=== PATIENT | female | born 1960 | race Caucasian/White ===

== ENCOUNTER → 2016-08-28 | Outpatient (REF) | payer OTHER | LOC: M LAB REF 16:51 | PROVIDERS: ATTEND Internal Medicine Medical Oncology | DX: C50.919 Malignant neoplasm of unspecified site of unspecified female breast (principal) ==

== ENCOUNTER → 2016-09-07 | Outpatient (CLI) | payer OTHER ==
--- NOTE | 2016-09-08 06:48 | RADONC ---
RADIATION ONCOLOGY CONSULTATION NOTE DATE: 09/07/2016 CHART NUMBER: [id number]. DIAGNOSIS: Right breast cancer. STAGE: Clinical stage IIB, T3NXMX. ECOG PERFORMANCE STATUS: 0 CONSULTATION NOTE: Ms. 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 HISTORY OF PRESENT ILLNESS: The patient's history actually dates back to sometime in 2012 when she first noticed a mass in her right breast. Apparently imaging was done in 2012, which I do not have at this time. It was noted that she had a 5 x 5 cm mass clinically. An ultrasound showed a 4 x 3 x 4 cm lobulated mass. A length of 7.8 cm was actually described from what I understand. She did not have a biopsy at that point. She was lost to followup. In 2014 imaging was repeated, but again she did not appear for followup. Apparently on 07/21/2015 she did undergo a biopsy of her right breast mass. Pathology revealed a poorly differentiated invasive ductal carcinoma. The tumor was estrogen receptor positive, progesterone receptor positive and HER2 negative. The tumor was noted to have some neuroendocrine features. A previous biopsy of a left axillary lymph node showed no evidence of malignancy. The patient was seen by Dr. Garcia for discussion of surgery and indeed is scheduled for surgery on Sunday. The patient was also seen by the medical oncologist, Dr. Ruiz, who discussed the possibility of presurgical chemotherapy. PAST MEDICAL HISTORY: The patient's past medical history is positive for two C-sections and four dilatation and curettages. It is otherwise noncontributory. ALLERGIES: The patient is allergic to ERYTHROMYCIN and CLINDAMYCIN. SOCIAL HISTORY: The patient does not smoke cigarettes nor abuse alcohol. FAMILY HISTORY: The patient's family history is positive for paternal aunts with breast cancer. REVIEW OF SYSTEMS: The patient's review of systems is positive for the mass in her right breast. It is otherwise noncontributory. She denies nausea, vomiting, fevers, chills, night sweats, diplopia, headaches, anxiety or depression, anorexia, weight loss, visual disturbances, chest pain, urinary or bowel difficulties, bone pain, or neurological problems. PHYSICAL EXAMINATION: The patient is a well-developed, well-nourished white female in no acute distress. HEENT exam is normocephalic, atraumatic. Extraocular movements are intact. There is no palpable cervical, supraclavicular, infraclavicular, axillary, or inguinal lymphadenopathy present. Lungs are clear to auscultation and percussion. Heart has a regular rate and rhythm. Abdomen is benign with no hepatosplenomegaly, masses, or tenderness. Breast examination reveals a left breast which is free of masses or discharge. The right breast examination reveals a mass which measures at least 6 cm x 6 cm, which appears to be freely mobile and not attached to either the skin or the chest wall. Skeletal examination reveals no tenderness to pressure or percussion of the bony skeleton. Extremities reveal no clubbing, cyanosis, or edema. Neurologic exam is grossly intact, as is the remainder of the physical examination. IMAGING: The patient's CT scan of the chest done on 04/19/2016 which shows a mass in the right breast measuring approximately 4.8 cm x 3.4 cm x 3.7 cm. ASSESSMENT: I had a lengthy discussion with this patient with regards to her various options. At the present time, she is scheduled for resection with Dr. Garcia on Sunday. Pending the pathologic results following that resection, further recommendations will be made. I fully suspect that this patient will require systemic therapy and indeed following surgery systemic therapy will be given prior to radiation. In light of that, I have not scheduled her for any followup or appointments in our office at this time. She is aware that her next step is to be seen by Dr. Garcia and undergo her surgery. She will then be returning to Dr. Ruiz for her systemic therapy and will be referred back to us by Dr. Ruiz for postoperative radiation therapy in attempt to increase the likelihood of achieving local control and cure. Clearly recommendations may change pending further workup and results of her surgery. I have discussed with the patient in detail the potential benefits as well as possible acute and chronic sequelae of external beam radiation therapy. We discussed logistics of treatment planning, simulation and subsequent fractionated daily radiation treatments. I have given the patient my cell phone number and work number so that I am available to answer any question she may have at anytime. Thank you once again for allowing us to participate in the care of this very pleasant woman. If I could be of any further assistance or provide you with any information, please free to contact me at anytime. cc: Pamela Ruiz MD *Kory Weldon MD *ANDREW Cade *Nakita Garcia MD
== END ==
LOC: M ONCR 13:02
PROVIDERS: ATTEND Radiology Radiation Oncology
DX: C50.919 Malignant neoplasm of unspecified site of unspecified female breast (principal)

== ENCOUNTER → 2016-09-27 | Outpatient (REF) | payer OTHER ==
[2016-09-27 17:13] LABS: INR 1.02
== END ==
LOC: M LAB REF 16:18
PROVIDERS: ATTEND Internal Medicine Medical Oncology
DX: C50.919 Malignant neoplasm of unspecified site of unspecified female breast (principal)

== ENCOUNTER → 2016-09-28 | Outpatient (REF) | payer OTHER ==
[2016-09-28 20:40] LABS: FERRITIN 2 NG/ML (8-252); IMMUNOGLOBULIN G 1010 MG/DL (681-1648); IMMUNOGLOBULIN M 133 MG/DL (40-230); PERCENT SATURATION 3.6 % (13.2-37.4); THYROXINE (T4) 12.1 UG/DL (4.5-12.0); TOTAL IRON BINDING CAPACITY 495 UG/DL (250-450); TOTAL PROTEIN 6.9 GM/DL (6.4-8.2)
[2016-10-03 09:17] LABS: ALBUMIN 3.73 GM/DL (3.29-5.55)
== END ==
LOC: M LAB REF 16:08
PROVIDERS: ATTEND Internal Medicine Medical Oncology
DX: C50.919 Malignant neoplasm of unspecified site of unspecified female breast (principal)

== ENCOUNTER → 2016-09-29 | Outpatient (CLI) | payer OTHER ==
--- NOTE | 2016-09-29 11:53 | REP ---
FOCUSED RIGHT AXILLARY ULTRASOUND: HISTORY: Right breast cancer, neglected mass. Restaging. 6-month lapse between original state and beginning of treatment. Question enlarged node. COMPARISON: Right breast sonography is from July 01, 2015. Comparison sonography was imaging of a mass in the right breast but not axillary sonography. FINDINGS: The right axilla is scanned. Multiple lymph nodes are seen. However, these appear sonographically normal with hyperechoic central fat replacement. There is a 3 mm cyst. Normal appearing lymph nodes are observed measuring as follows: 1.1 x 1.1 x 1.7, 1.9 x 1.6 x 1.4, 2.3 x 0.8 x 2.2, 1.4 x 0.8 x 1.5, 1.1 x 0.8, and 1.0 x 1.2 cm. These lymph nodes display a thin rim of hypoechoic cortex and central hilar hyperechoic fatty tissue. IMPRESSION: No suspicious lymph node is appreciated by ultrasound. Signed by Solo Thurman MD 09/29/2016 02:06 P
== END ==
LOC: M RAD 09:57
PROVIDERS: ATTEND Internal Medicine Medical Oncology
DX: C50.911 Malignant neoplasm of unspecified site of right female breast (principal)

== ENCOUNTER → 2016-10-06 | Outpatient (CLI) | payer OTHER ==
[~2016-10-06] MED LIST: GASTROGRAFIN SOLUTION 30ML (Q9963) As Ordered ONE; ISOVUE-370 76% 100ML VIAL (Q9967) As Ordered ONE
--- NOTE | 2016-10-06 16:10 | REP ---
CT of the chest with IV contrast: Comparison is 04/09/2016. The patient's known right breast mass is again identified and measures 3.8 cm as previously. No axillary adenopathy is identified on the right or left. No left breast mass is identified. The patient's known nodule in the superior segment right lower lobe is again identified today measuring 6 mm (previously 3.5 mm. No other lung nodules or masses are identified. There are no acute infiltrates or effusions. There is no mediastinal or hilar adenopathy. Thoracic aorta is unremarkable. Cardiac size normal. There is no pericardial effusion. No lytic, blastic or destructive skeletal changes are identified. The manubrium is unremarkable. Impression: The patient's known right lung nodule today measures 6 mm (3.5 mm previously). The patient's known right breast mass is unchanged. There is no axillary, hilar or mediastinal adenopathy, as previously. There are no acute infiltrates or effusions. No destructive skeletal lesions. The manubrium is unremarkable. There is a small hiatal hernia containing opaque ingested material. There is opaque ingested material in the stomach. Signed by Nemesio Anguiano MD 10/06/2016 04:02 P
--- NOTE | 2016-10-06 16:26 | REP ---
CT ABDOMEN: HISTORY: Breast cancer. COMPARISON: 04/19/2016 CONTRAST: 100 mL Isovue-370 The precontrast enhanced portion of the examination shows no change in the appearance of hepatic or splenic densities. There are no choleliths or nephroliths. The contrast-enhanced portion of the examination shows the liver, spleen, gallbladder, pancreas, adrenal glands and kidneys to be unchanged, remaining within normal limits. The abdominal aorta and periaortic regions are unchanged remaining within normal limits. The bowel loops and the mesenteries are again seen to be within normal limits. There is no free fluid or free air. There is no intraabdominal mass or adenopathy. CT pelvis: The bowel loops and their mesenteries are within normal limits. There is no pelvic sidewall adenopathy. There is no free fluid or free air. Once again, there is uterine enlargement which has increased from the prior exam. Bone window technique throughout the examination shows no change in the appearance of the osseous structures. Spinal degenerative changes are noted, status quo. IMPRESSION: Essentially stable CT examination of the abdomen and pelvis as described above showing no evidence of acute disease. The uterus is enlarged and has gotten larger in size compared to the prior exam. I suspect this is likely secondary to myomatous change. This could be confirmed with pelvic ultrasonography. Signed by Madhu Vicente DO 10/06/2016 04:32 P
== END ==
LOC: M RAD 13:57
PROVIDERS: ATTEND Internal Medicine Medical Oncology
DX: C50.919 Malignant neoplasm of unspecified site of unspecified female breast (principal); R91.1 Solitary pulmonary nodule; K44.9 Diaphragmatic hernia without obstruction or gangrene

== ENCOUNTER → 2016-10-12 | Outpatient (REF) | payer OTHER ==
[2016-10-12 17:56] LABS: INR 1.08
[2016-10-15 00:06] LABS: ENDOMYSIAL ABY IgA Negative (Negative)
== END ==
LOC: M LAB REF 16:47
PROVIDERS: ATTEND Internal Medicine Medical Oncology
DX: C50.211 Malignant neoplasm of upper-inner quadrant of right female breast (principal); Z79.810 Long term (current) use of selective estrogen receptor modulators (SERMs); E83.52 Hypercalcemia; D50.9 Iron deficiency anemia, unspecified; Z17.0 Estrogen receptor positive status [ER+]

== ENCOUNTER → 2016-10-25 | Outpatient (CLI) | payer OTHER ==
[~2016-10-25] MED LIST changes: +FLON27.5; -GASTROGRAFIN SOLUTION 30ML (Q9963) As Ordered ONE; -ISOVUE-370 76% 100ML VIAL (Q9967) As Ordered ONE; +MEGA625S PO; +ZYRT10CA PO
== END ==
LOC: M CARPUL 10:25
PROVIDERS: ATTEND Internal Medicine Medical Oncology
DX: C50.919 Malignant neoplasm of unspecified site of unspecified female breast (principal)

== ENCOUNTER → 2016-10-31 | Outpatient (CLI) | payer OTHER ==
[~2016-10-31] VITALS: Ht 152.4 cm; Wt 63.6 kg
[~2016-10-31] MED LIST changes: +ACETAMINOPHEN TAB 650MG DOSE (2X325MG) PO SCH; +diphenhydrAMINE 25 MG CAP PO SCH
[2016-10-31 10:45] VITALS: BP 155/74
== END | disposition home or self-care (01) ==
LOC: M OPP 09:57
PROVIDERS: ATTEND Internal Medicine Medical Oncology
DX: D64.9 Anemia, unspecified (principal); Z88.9 Allergy status to unspecified drugs, medicaments and biological substances; Z79.899 Other long term (current) drug therapy
CPT/HCPCS: 36430; 86850; 86920; P9016

== ENCOUNTER → 2016-11-06 | Outpatient (REF) | payer OTHER ==
[~2016-11-06] MED LIST changes: -ACETAMINOPHEN TAB 650MG DOSE (2X325MG) PO SCH; -diphenhydrAMINE 25 MG CAP PO SCH
== END ==
LOC: M LAB REF 12:21
PROVIDERS: ATTEND Internal Medicine Medical Oncology
DX: C50.919 Malignant neoplasm of unspecified site of unspecified female breast (principal)

== ENCOUNTER → 2016-12-12 | Outpatient (CLI) | payer OTHER ==
--- NOTE | 2016-12-12 14:02 | REP ---
NUCLEAR PARATHYROID SESTAMIBI SCAN WITH SPECT IMAGING: Following the intravenous administration of 26.9 millicuries technetium 99m sestamibi, images of the neck are obtained in the anterior and both anterior oblique projections 15 minutes and 3 hours post injection. In addition, delayed SPECT images are performed in the axial, coronal, and sagittal planes. Initial images show symmetrical activity in the salivary glands and also in the thyroid bed. On the delayed images, there is no persistent focus of activity in the region of the thyroid bed. There is no compelling scintigraphic evidence of parathyroid adenoma. IMPRESSION: No compelling scintigraphic evidence of parathyroid adenoma. Signed by Nemesio Fonseca MD 12/12/2016 08:11 P
== END ==
LOC: M RAD 08:32
PROVIDERS: ATTEND Internal Medicine Endocrinology, Diabetes & Metabolism
DX: E21.0 Primary hyperparathyroidism (principal)

== ENCOUNTER → 2017-01-24 | Outpatient (REF) | payer OTHER | LOC: M LAB REF 14:39 | PROVIDERS: ATTEND Internal Medicine Medical Oncology | DX: C50.919 Malignant neoplasm of unspecified site of unspecified female breast (principal) ==

== ENCOUNTER → 2017-02-01 | Outpatient (CLI) | payer OTHER ==
[~2017-02-01] MED LIST changes: +GASTROGRAFIN SOLUTION 30ML (Q9963) As Ordered ONE; +ISOVUE-370 76% 100ML VIAL (Q9967) As Ordered ONE
--- NOTE | 2017-02-01 13:18 | REP ---
BILATERAL MAMMOGRAM: FAMILY HISTORY: Two aunts with breast cancer. Bilateral mammography performed in the MLO and CC projections and compared to multiple prior exams, most recently studies of 07/21/2015 and 06/02/2015. These were performed at [facility]. There are also other studies dating back to 07/14/2010 at [facility]. Patient has had a biopsy of a large mass in the right breast and a metallic clip is seen medially from the biopsy. At that location, a large spiculated mass is again seen, with increased spiculations since the 2016 exams. Overall size of the mass has not significantly changed. There may be a few internal calcifications associated with the mass. No new mass or clustered microcalcifications are seen in the right breast. In the left breast laterally and posteriorly is an oval nodule approximately 1 cm in diameter which appears to have slightly increased in size since 2015 exam. An ultrasound in 2014 showed this to represent a solid nodule. No new mass is seen in the left breast. No clustered microcalcifications are seen. IMPRESSION: ACR 6 known biopsy proven malignancy, with a mass again seen in the inferomedial right breast. There are increased spiculations compared to the prior exam on 2015 with no significant change in the overall size of the mass. BI-RADS/ACR category 6 mammogram. Known biopsy-proven malignancy - appropriate action should be taken. Category reserved for lesions identified on imaging study with biopsy proof of malignancy prior to definitive therapy. ACR 0 complete mammogram left breast with an oval nodule again seen which has mildly increased in size compared to prior studies dating back to 08/11/2014. This was found to be solid by ultrasound in 2015. I would recommend spot compression views and ultrasound in order to re-evaluate this mass as I have no history of any biopsy performed. ACR 0 incomplete. BI-RADS/ACR category 0 mammogram. Incomplete: Additional imaging and/or prior images are needed before a final assessment can be assigned. This mammogram was interpreted with the aid of an FDA-approved computer-aided detection system. A. Negative x-ray reports should not delay biopsy if a dominant or clinically suspicious mass is present. B. Four to eight percent of cancers are not identified by x-ray. C. Adenosis and dense breasts may obscure an underlying neoplasm. The patient states she had a clinical breast exam in 01/2017. The patient letter being requested is M0. Signed by Nemesio Fonseca MD 02/01/2017 07:52 P
--- NOTE | 2017-02-02 05:29 | REP ---
Clinical: History of breast cancer for restaging. Technique: Axial contrast enhanced images from the lung bases to the pubic symphysis using oral and 100 ml Isovue 370 intravenous contrast material with precontrast and delayed images of the abdomen as well as coronal and sagittal re-formations. Comparison: 10/06/2016. Findings: Lung bases are relatively clear and without focal consolidation, significant nodule or mass lesion. No pleural effusion. Sized heart and pericardium are normal. Moderate hiatal hernia identified. Liver, spleen/splenules, pancreas, gallbladder, bilateral adrenal glands and kidneys are normal. The enteric system including terminal ileum and appendix are normal and without evidence for obstruction or acute inflammatory process. The uterus is enlarged and heterogeneous suggesting myomatous changes. Bilateral adnexa are normal. Bladder is unremarkable. No pelvic fluid or ascites. No significant intraperitoneal or retroperitoneal adenopathy. No mass lesion. Vasculature appears normal. Surrounding musculoskeletal structures demonstrate age-related degenerative changes without focal osseous abnormality. Impression: 1. Multiple splenules in the left upper abdomen remains stable. 2. Enlarged heterogeneous presumed myomatous uterus may warrant pelvic ultrasound for evaluation. 3. No acute abdominopelvic pathology, evidence for recurrence, mass lesion or metastatic disease. Signed by Bridger Shaffer MD 02/02/2017 05:21 A
--- NOTE | 2017-02-02 05:36 | REP ---
Clinical: Breast cancer for restaging. Technique: Axial contrast enhanced images from the thoracic inlet to the upper abdomen using 100 ml is Isovue 370 intravenous contrast material with coronal and sagittal re-formations. Comparison: 10/06/2016. Findings: The bilateral lung zambrano are well-aerated and relatively symmetric. A small 5-6 mm noncalcified nodule inseparable from the major fissure (image 47) is essentially unchanged. No further significant nodule or mass lesion is appreciated. No consolidation, pleural effusion or pneumothorax. Tracheobronchial tree is patent. Axillary lymph nodes are relatively symmetric and mildly prominent. No hilar or mediastinal adenopathy noted. A moderate hiatal hernia is unchanged. Thoracic aorta, pulmonary vasculature and heart/pericardium are within normal limits. Surrounding musculoskeletal structures demonstrate age-related changes without focal osseous abnormality. Right breast mass is minimally decreased in size. Impression: 1. A 6 mm noncalcified nodule inseparable from the right major fissure is unchanged and nonspecific. Given the patient's history, continued follow-up is warranted as metastatic disease cannot definitively be excluded. 2. No further, significant or acute mediastinal or pleuroparenchymal process otherwise appreciated. 3. Right breast mass may be minimally decreased in size/volume. Signed by Bridger Shaffer MD 02/02/2017 05:28 A
== END ==
LOC: M RAD 09:54
PROVIDERS: ATTEND Internal Medicine Medical Oncology
DX: Z12.31 Encounter for screening mammogram for malignant neoplasm of breast (principal); C50.919 Malignant neoplasm of unspecified site of unspecified female breast; N85.2 Hypertrophy of uterus; R91.1 Solitary pulmonary nodule
CPT/HCPCS: 71260; 74178; G0202; Q9963; Q9967

== ENCOUNTER → 2017-02-12 | Outpatient (CLI) | payer OTHER ==
[~2017-02-12] MED LIST changes: -GASTROGRAFIN SOLUTION 30ML (Q9963) As Ordered ONE; -ISOVUE-370 76% 100ML VIAL (Q9967) As Ordered ONE
[2017-02-12 11:57] LABS: CALCIUM LEVEL 11.3 MG/DL (8.5-10.1); PHOSPHORUS LEVEL 2.4 MG/DL (2.5-4.9)
== END ==
LOC: M LAB 10:51
PROVIDERS: ATTEND Internal Medicine Endocrinology, Diabetes & Metabolism
DX: E21.0 Primary hyperparathyroidism (principal)

== ENCOUNTER → 2017-05-22 | Outpatient (CLI) | payer OTHER ==
[2017-05-22 11:03] LABS: CALCIUM LEVEL 11.8 MG/DL (8.5-10.1); PHOSPHORUS LEVEL 2.3 MG/DL (2.5-4.9)
[2017-05-22 11:27] LABS: PTH INTACT 167.5 PG/ML (14.0-72.0)
== END ==
LOC: M LAB 10:09
DX: E21.0 Primary hyperparathyroidism (principal)
CPT/HCPCS: 82310

== ENCOUNTER → 2017-07-31 | Outpatient (REF) | payer OTHER | LOC: M LAB REF 13:47 | DX: C50.919 Malignant neoplasm of unspecified site of unspecified female breast (principal) ==

== ENCOUNTER → 2017-10-16 | Outpatient (REF) | payer OTHER ==
[2017-10-16 14:05] LABS: FERRITIN 5 NG/ML (8-252); IRON (FE) 36 UG/DL (50-170); PERCENT SATURATION 7.9 % (13.2-45.0); TOTAL IRON BINDING CAPACITY 456 UG/DL (250-450)
== END ==
LOC: M LAB REF 13:17
DX: C50.211 Malignant neoplasm of upper-inner quadrant of right female breast (principal); E83.52 Hypercalcemia; E21.3 Hyperparathyroidism, unspecified; D50.9 Iron deficiency anemia, unspecified; Z17.0 Estrogen receptor positive status [ER+]

== ENCOUNTER → 2017-11-20 | Outpatient (REF) | payer OTHER ==
[2017-11-22 00:21] LABS: CA 27.29 28.5 U/mL (0.0-38.6)
== END ==
LOC: M LAB REF 13:55
DX: C50.211 Malignant neoplasm of upper-inner quadrant of right female breast (principal); E83.52 Hypercalcemia; E21.3 Hyperparathyroidism, unspecified; D50.9 Iron deficiency anemia, unspecified; Z17.0 Estrogen receptor positive status [ER+]

== ENCOUNTER → 2018-04-08 | Outpatient (CLI) | payer OTHER | LOC: M RAD 14:29 | DX: C50.211 Malignant neoplasm of upper-inner quadrant of right female breast (principal) | CPT/HCPCS: 77066 ==

== ENCOUNTER → 2018-05-20 | Outpatient (CLI) | payer OTHER ==
[~2018-05-20] MED LIST changes: +AMOX500T PO; +FLON1SPR; +FLUC150T PO; +FURO20TA2 PO; +GASTROGRAFIN SOLUTION 30ML (Q9963) As Ordered ONE; +HYDR12CA; +ISOVUE-370 76% 100ML VIAL (Q9967) As Ordered ONE; +LOSA50TA88; +METO25TA4 PO; +NYST50SS; +TAMO20TA8 PO; +VITA100067 PO; +VITATAB11 PO
--- NOTE | 2018-05-21 07:04 | REP ---
Clinical: History of breast cancer for restaging. Technique: Axial contrast enhanced images from the thoracic inlet to the upper abdomen with coronal and sagittal re-formations using 100 ml Isovue 370 intravenous contrast material. Comparison: 02/01/2017. Findings: The bilateral lung zambrano are essentially well-aerated and clear. No area of consolidation, significant pulmonary nodule or mass lesion is appreciated. No pleural effusion or pneumothorax. Tracheobronchial tree is patent. No mediastinal or hilar adenopathy noted. The mediastinum demonstrates essentially normal thoracic aorta, pulmonary vasculature and heart/pericardium. There is a large heterogeneously enhancing right breast mass measuring greater than 6.6 cm diameter with infiltration to the surrounding fat, central low density changes which may reflect elements of necrosis and significant right axillary adenopathy with lymph node measuring up to 4.2 x 3.1 cm. Mass and right axillary adenopathy is significantly increased when compared to prior examination. Surrounding musculoskeletal structures of the thorax appear intact without focal lesion to suggest osseous metastatic disease. Impression: 1. No evidence for intrathoracic metastatic disease, and no evidence for acute mediastinal or pleuroparenchymal process. 2. Large heterogeneously enhancing right breast mass with right axillary adenopathy significantly increased from prior examination. Electronically Signed by Bridger Shaffer MD 05/21/2018 06:55 A
--- NOTE | 2018-05-21 07:08 | REP ---
Clinical: History of breast cancer for restaging. Technique: Axial contrast enhanced images from the lung bases to the pubic symphysis using oral (per protocol) and 100 ml Isovue 370 intravenous contrast material with delayed images of the abdomen as well as coronal and sagittal re-formations. Comparison: 02/01/2017. Findings: Lung bases are clear. Visualized heart and pericardium within normal limits. Small to moderate hiatal hernia noted at the gastroesophageal junction. The liver is essentially normal in appearance on both portal venous and delayed phase images, but a very subtle area of heterogeneous enhancement approaching the dome of the posterior segment right lobe cannot definitively be excluded. Spleen, pancreas, gallbladder, bilateral adrenal glands and kidneys are essentially normal. Few small left peripelvic renal cysts measure up to 1 cm. The enteric system is without obstruction or acute inflammatory process. Normal terminal ileum and appendix are identified in the right lower quadrant. Pelvis demonstrates normal bladder and age-appropriate uterus/adnexa. No ascites. No intraperitoneal or retroperitoneal adenopathy. Abdominal aorta and vasculature appear relatively normal and without aneurysm or dissection. No free air. Surrounding musculoskeletal structures are intact and without focal osseous abnormality. Impression: 1. Very subtle vague area of early enhancement involving the posterior segment right lobe of the liver approaching the dome cannot be excluded. A 3-6 month follow-up may be warranted. 2. Small simple appearing left renal peripelvic cysts up to 1 cm. 3. Small to moderate hiatal hernia. Electronically Signed by Bridger Shaffer MD 05/21/2018 07:01 A
== END ==
LOC: M RAD 08:50
PROVIDERS: ATTEND Internal Medicine Medical Oncology
DX: C50.919 Malignant neoplasm of unspecified site of unspecified female breast (principal); N28.1 Cyst of kidney, acquired; K44.9 Diaphragmatic hernia without obstruction or gangrene
CPT/HCPCS: 71260; 74177; Q9963; Q9967

== ENCOUNTER → 2018-10-22 | Outpatient (CLI) | payer OTHER ==
[~2018-10-22] MED LIST changes: +ALL10TAB28 PO; +ALLE10TA62 PO; +AMOX500C PO; +FERR325T18 PO; +FLUTISP; -GASTROGRAFIN SOLUTION 30ML (Q9963) As Ordered ONE; -ISOVUE-370 76% 100ML VIAL (Q9967) As Ordered ONE; -LOSA50TA88; +LOSA50TA88 PO; +PRAV40TA2 PO; +RIBO1CAP PO
--- NOTE | 2018-10-24 09:23 | RADONC ---
RADIATION ONCOLOGY CONSULTATION NOTE DATE: 10/22/2018 CHART NUMBER: [id number] DIAGNOSIS: Right breast cancer. STAGE: [id number], ER positive, MD positive, HER2 equivocal, grade 3, Oncotype score 38. ECOG PERFORMANCE STATUS: 0 CONSULTATION: Ms. 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 HISTORY OF PRESENT ILLNESS: The patient's history actually dates back to some time in early 2012 when she first noticed a mass in her right breast. Apparently, imaging was done in 2012, which I do have at this time. She was noted to have a 5 x 5 cm mass clinically. An ultrasound showed a 4 x 3 x 4 cm lobulated mass. A length of 7.8 cm was described from what I understand. She did not have any biopsy and was lost to follow-up at that time. In 2014, imaging was repeated and again, the patient did not appear to follow-up. Apparently in 2016 she did undergo a biopsy of her right breast and pathology revealed a poorly differentiated invasive ductal carcinoma. The tumor was estrogen receptor positive, progesterone receptor positive and HER2 negative. The tumor was noted to have some neuroendocrine features. Previous biopsy was done of the left axillary lymph node and showed no evidence of malignancy. The patient was seen by Dr. Garcia for discussion of surgery and was indeed scheduled for surgery in 2016. She was also seen by her medical oncologist, Dr. Ruiz who discussed the possibility of presurgical chemotherapy. Apparently, the patient did receive neoadjuvant chemotherapy consisting of TC. There was serial noncompliance. The patient had been scheduled on multiple occasions for surgery with Dr. Garcia and failed to show up. She was subsequently seen by Dr. Beck and failed to show up on multiple occasions as well. Eventually, she made her way to Dr. Lopez and on 10/03/2018 finely underwent a right modified radical mastectomy. Pathology revealed a 10.5 cm poorly differentiated invasive ductal carcinoma with neuroendocrine features. The tumor extended into and invaded the subcutaneous tissue and abutted the deep dermis. Skeletal muscle was free of malignancy. Lymphovascular invasion was seen. A total of 16 lymph nodes were sampled and 2 were positive for metastatic disease with extranodal extension noted. The size of the largest metastatic deposit was 2.2 cm. The tumor was estrogen receptor positive, progesterone receptor positive and HER2 equivocal at this time. The patient has done well since surgery and is now presenting to us for consideration of postoperative radiation therapy in an attempt to increase the likelihood of achieving local control. Once again, she has invasive carcinoma present at the deep margin of resection. PAST MEDICAL HISTORY: The patient's past medical history is positive for hypertension and thyroid problems. She has had two sections and four dilatation and curettage in the past. SOCIAL HISTORY: The patient has never smoked cigarettes. She has never drank alcohol. She lives with her mother. FAMILY HISTORY: The patient's family history is positive for a father with leukemia and two paternal aunts with breast cancer. ALLERGIES: The patient is allergic to: 1. AMOXICILLIN. 2. CLINDAMYCIN. 3. ERYTHROMYCIN. 4. PERCOCET. REVIEW OF SYSTEMS: The patient's review of systems is noncontributory. She denies nausea, vomiting, fevers, chills, night sweats, diplopia, headaches, anxiety or depression, anorexia, weight loss, visual disturbances, chest pain, urinary or bowel difficulties, bone pain, or neurological problems. PHYSICAL EXAMINATION: The patient is a well-developed, well-nourished white female in no acute distress. HEENT exam is normocephalic, atraumatic. Extraocular movements are intact. There is no palpable cervical, supraclavicular, infraclavicular, axillary, or inguinal lymphadenopathy present. Lungs are clear to auscultation and percussion. Heart has a regular rate and rhythm. Abdomen is benign with no hepatosplenomegaly, masses, or tenderness. Breast examination reveals a right chest wall with a healing surgical scar present consistent with her above history. Her left breast is without masses or discharge. Skeletal examination reveals no tenderness to pressure or percussion of the bony skeleton. Extremities reveal no clubbing, cyanosis, or edema. Neurologic exam is grossly intact, as is the remainder of the physical examination. ASSESSMENT: Clearly the patient is a candidate for postoperative radiation therapy and I have so informed her. I have discussed with the patient in detail the potential benefits as well as possible acute and chronic sequelae of external beam radiation therapy. We have discussed the logistics of treatment planning, simulation and subsequent fractionated daily radiation treatments. I have scheduled the patient for simulation and radiation treatments will follow. The patient has been made aware of the need for this treatment. She has a very long history of noncompliance going back at this point over 6 years. I have not seen any diagnostic studies in the past 6 months and therefore I have ordered a PET CT scan to be undertaken now to document her current level of disease. In light of the massive tumor and the long period of time, we are discussing there is the possibility that she already has metastatic disease. Pending the results of that PET scan, further recommendations will be made. Thank you for allowing us to participate in the care of this very pleasant woman. If I could be of any further assistance, please feel free to contact me at any time. cc: Laura Odell, MD Pamela Bajwa MD Robert Kimball, MD Kara Kort, MD David Rosner, MD
== END ==
LOC: M ONCR 08:58
PROVIDERS: ATTEND Radiology Radiation Oncology
DX: Z85.3 Personal history of malignant neoplasm of breast (principal)

== ENCOUNTER → 2018-12-04 | Outpatient (RCR) | payer OTHER ==
--- NOTE | 2018-11-04 10:32 | RADONC ---
RADIATION ONCOLOGY SIMULATION NOTE DATE: 11/04/2018 DIAGNOSIS: Right breast cancer. STAGE: T3 pathologic N1a, M0, grade 3. SIMULATION NOTE: The patient was simulated today. She was placed in a supine position with her arms over her head. 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 An immobilization device was constructed for the patient in order to enable day-to-day accuracy. After the immobilization device was fabricated, 3 mm images were captured via the CT scanning through the chest, right breast, including peripheral lymphatics. These images will be contoured as to structures to be treated and normal surrounding structures which should be avoided. The entire process was tolerated with no significant untoward side effects. I was present during the entire simulation process. The simulation was completed again without untoward events, and she will be contoured with subsequent treatment planning for treatment to begin as soon as possible. PINAD
--- NOTE | 2018-11-14 09:59 | RADONC ---
RADIATION ONCOLOGY PROGRESS NOTE DATE: 11/13/2018 CHART NUMBER: #[id number] PROGRESS NOTE: Ms. Godwin had her radiation treatment plan completed and was ready to be scheduled to initiate treatment. The patient called our office today and said she does not want radiation and does not understand why she needs radiation. I had spent an extraordinary amount of time with her initially and discussed the risks of not being treated in this very noncompliant patient. We let her know the need for radiation and the high likelihood of this disease coming back without treatment. Indeed, I had also scheduled the patient for a PET scan and explained the need for that and she absolutely refused that. This patient has a long history of noncompliance and this issue with her breast cancer has actually gone on now since early 2012. Clearly, we cannot force her to come in for treatment. I did call her home and left a message on her answering machine as she was not answering the phone. We will be sending her a letter explaining our concern as well, and I have reserved a treatment slot for her should she change her mind and wish to come in. Once again, we cannot force this woman to undergo the treatment. Indeed, we are now more than 6 years out since the initial breast mass was found. cc: Laura Odell, MORPHOLOGIST MD Pamela Alarcon MD Robert Kimball, MD Kara Kort, MD David Rosner, MD
--- NOTE | 2018-11-22 15:15 | RADONC ---
RADIATION ONCOLOGY PROGRESS NOTE DATE: 11/20/2018 CHART NUMBER: [id number] Ms. Godwin had been scheduled to start radiation once again today. She then contacted our office and said should she would not be coming in today because of difficulty with transportation. I contacted the nurse navigator and let her know about this situation. She will be contacted the patient and see how we could facilitate her transportation here to our facility. In the meantime we will continue an attempt to get her scheduled to initiate treatment. I suspect that this patient will continue to be extremely noncompliant throughout the course of this entire procedure.
--- NOTE | 2018-11-27 06:53 | RADONC ---
RADIATION ONCOLOGY PROGRESS NOTE DATE: 11/26/2018 CHART #: [id number] Ms. Godwin is presently at a dose of 540 cGy to her right chest wall and is tolerating treatments quite well at this point with no complaints related to her radiation therapy. She has no breast or bone pain. REVIEW OF SYSTEMS: The patient's review of systems is noncontributory. Denies nausea, vomiting, fevers, chills, night sweats, diplopia, headaches, anxiety or depression, anorexia, weight loss, visual disturbances, chest pain, urinary or bowel difficulties, bone pain, or neurological problems. PHYSICAL EXAMINATION: The patient's skin is in good condition with no evidence of radiation change present. There is no moist or dry desquamation. The remainder of her physical exam remains unchanged. Ms. Godwin is tolerating treatments quite well and radiation will continue as scheduled.
--- NOTE | 2018-12-03 08:52 | RADONC ---
RADIATION ONCOLOGY PROGRESS NOTE DATE: 12/02/2018 CHART NUMBER: [id number] PROGRESS NOTE: Ms. Godwin is presently at a dose of 1440 cGy to her right chest wall and supraclavicular region and is tolerating treatments quite well at this point with no complaints related to her radiation therapy. She is having no breast or bone pain. REVIEW OF SYSTEMS: The patient's review of systems is noncontributory. Denies nausea, vomiting, fevers, chills, night sweats, diplopia, headaches, anxiety or depression, anorexia, weight loss, visual disturbances, chest pain, urinary or bowel difficulties, bone pain, or neurological problems. PHYSICAL EXAMINATION: The patient's skin is in good condition with no evidence of moist or dry desquamation. The remainder of physical exam remains unchanged. Ms. Godwin is tolerating treatments quite well and radiation will continue as scheduled.
[~2018-12-04] MED LIST changes: -ALL10TAB28 PO; +ALL10TAB29 PO; +LETR2.5T2 PO; +SIMV40TA20 PO
== END ==
LOC: M ONCR 11-04 08:57
PROVIDERS: ATTEND Radiology Radiation Oncology
DX: C50.111 Malignant neoplasm of central portion of right female breast (principal)

== ENCOUNTER 2019-01-03 09:50 | Outpatient (RCR) | payer OTHER ==
--- NOTE | 2018-12-09 09:32 | RADONC ---
RADIATION ONCOLOGY PROGRESS NOTE DATE: 12/09/2018 CHART #: [id number] Mrs. Godwin with a diagnosis of right breast cancer is currently receiving local regional radiotherapy to the right chest wall and she has achieved a dose to date of 2160 cGy of her proposed 5040 cGy with further evaluation as to a potential boost. She denies any complaints referable to her disease or to her treatments. REVIEW OF SYSTEMS: She specifically denies nausea, vomiting, diarrhea, dysuria, hematuria or blood per rectum. Her energy level is such that she is able to maintain most day-to-day activities without any alteration of her lifestyle. The remainder of the review of systems is noncontributory as she denies any chest pain, urinary or bowel difficulties, bone pain or neurologic issues. EXAMINATION FINDINGS: The skin within the irradiated volume shows neither erythema nor desquamation. There may be a minimal amount of skin redness to the chest wall, but certainly no focal desquamation is noted. No adenopathy is appreciated. Lungs are clear. The remainder of the physical examination is unchanged. IMPRESSION: Tolerating therapy well. PLAN: Treatments to continue.
--- NOTE | 2018-12-09 10:55 | RADONC ---
RADIATION ONCOLOGY PROGRESS NOTE DATE: 12/09/2018 CHART #; [id number] DIAGNOSIS: Right breast cancer. Mrs. Godwin is a 58-year-old lady with a diagnosis of right breast cancer and is receiving adjuvant radiotherapy to the right chest wall and peripheral lymphatics. Her current dose is 2340 cGy of an anticipated 5040 cGy to be followed by a 1000 cGy boost to the scar site. REVIEW OF SYSTEMS: She appears to be tolerating her radiotherapy reasonably well with no significant untoward side effects. She specifically denies any nausea, vomiting, coughing, sputum production or hemoptysis. Her energy level is adequate and she is able to maintain most day-to-day activities without any alteration of her lifestyle. She does experience some minimal erythema on the right anterior chest wall. There is no evidence of desquamation. The remainder of the review of systems is noncontributory. EXAMINATION FINDINGS: Skin within the irradiated volume as stated shows a minimal hyper erythematous blush without focal moist or dry desquamation. Lymphatics: No palpable peripheral lymphadenopathy is appreciated. No masses are appreciated on the chest wall, no lymphadenopathy is noted. The remainder of the physical examination is unchanged. IMPRESSION: Tolerating therapy well. PLAN: Treatments to continue.
--- NOTE | 2018-12-18 09:11 | RADONC ---
RADIATION ONCOLOGY PROGRESS NOTE DATE OF SERVICE: 12/16/2018 CHART #: [id number] Mrs. Godwin with a diagnosis of a right breast cancer is currently receiving adjuvant radiotherapy and her dose to date is 3240 cGy of an anticipated 5040 cGy to be followed by a boost treatment to the scar site. She has no complaints referable to her disease or to her treatments. REVIEW OF SYSTEMS: The patient denies any nausea, vomiting, coughing, sputum production, or hemoptysis. Her energy level is such that she is able to maintain most day-to-day activities without any alteration of her lifestyle. Skin irritation is minimal and the patient does complain of some itching of the skin for which she uses a combination of Aquaphor and hydrocortisone cream. She denies any other symptoms such as headache, bone pain, abdominal discomfort or neurologic issues. EXAMINATION FINDINGS: The skin within the irradiated volume shows some hyperpigmentation and no evidence of desquamation. There is no evidence of local regional recurrence on her chest wall. No palpable peripheral lymphadenopathy is appreciated. Lungs are clear. The remainder of the physical examination is unchanged. IMPRESSION: Tolerating therapy well. PLAN: Treatments to continue.
--- NOTE | 2018-12-25 14:43 | RADONC ---
RADIATION ONCOLOGY PROGRESS NOTE DATE OF SERVICE: 12/23/2018 CHART NUMBER: [id number]. PROGRESS NOTE: Ms. Godwin is presently at a dose of 4140 cGy to her right chest wall and is tolerating treatments quite well at this point with no complaints related to her radiation therapy. She is having no significant skin pain or other problems. REVIEW OF SYSTEMS: The patient's review of systems is noncontributory. She denies nausea, vomiting, fevers, chills, night sweats, diplopia, headaches, anxiety or depression, anorexia, weight loss, visual disturbances, chest pain, urinary or bowel difficulties, bone pain, or neurological problems. PHYSICAL EXAMINATION: The patient's skin is in good condition with no evidence of moist or dry desquamation. There is some erythema and tanning present. The remainder of her physical examination remains unchanged. Ms. Godwin is tolerating treatments quite well, and radiation will continue as scheduled.
--- NOTE | 2018-12-26 15:03 | RADONC ---
RADIATION ONCOLOGY SIMULATION NOTE DATE: 12/24/2018 CHART NUMBER: [id number] SIMULATION NOTE: Ms. Godwin was taken to the CT taken to the linear accelerator today for clinical setup of her electron beam scar boost. Setup was accomplished without difficulty or discomfort. Radiation treatment planning is underway and radiation treatments will begin subsequently. An immobilization device was created and will be used throughout the course of her coned-down treatments. I was physically present throughout the course of clinical setup simulation.
--- NOTE | 2019-01-01 06:38 | RADONC ---
RADIATION ONCOLOGY PROGRESS NOTE DATE: 12/30/2018 CHART NUMBER: [id number] Ms. Godwin has completed radiation to her chest wall and supraclavicular regions. She is scheduled to begin the boost to her surgical scar tomorrow. REVIEW OF SYSTEMS: The patient's review of systems is largely noncontributory except for some tenderness of the skin in the irradiated field, especially in the upper inner quadrant away from the boost site. She denies nausea, vomiting, fevers, chills, night sweats, diplopia, headaches, anxiety or depression, anorexia, weight loss, visual disturbances, chest pain, urinary or bowel difficulties, bone pain, or neurological problems. PHYSICAL EXAMINATION: The patient's skin overall is in good condition with no areas of moist or dry desquamation. There is erythema and tanning present in the upper inner quadrant away from the site which will be receiving radiation. The remainder of her physical exam remains unchanged. The patient reports that she has had flushing, redness and skin reaction to sulfa drugs. In light of this, I have not ordered Silvadene to be used topically. She has been given other skin care instructions. In the meantime, radiation will continue to her boost site as planned.
[~2019-01-03 09:50] MED LIST changes: -LETR2.5T2 PO; -SIMV40TA20 PO
== END 2019-01-04 ==
LOC: M ONCR 09:50
PROVIDERS: ATTEND Radiology Radiation Oncology
DX: C50.111 Malignant neoplasm of central portion of right female breast (principal)

== ENCOUNTER 2019-01-07 09:56 | Outpatient (RCR) | payer OTHER ==
--- NOTE | 2019-01-08 08:36 | RADONC ---
RADIATION ONCOLOGY THERAPY TREATMENT SUMMARY DATE: 01/07/2019 CHART NUMBER: [id number] DIAGNOSIS: Right breast cancer. STAGE: [id number], ER positive, GA positive, HER2/sherrell equivocal, grade 3. Oncotype score 38. PLAN OF RADIOTHERAPY: Adjuvant local regional radiotherapy. The patient had received some neoadjuvant chemotherapy consisting of TC with an issue of "serial noncompliance". Date radiotherapy started November 21, 2018. Date radiotherapy completed January 07, 2019. Dose - the patient received radiotherapy to the right breast and peripheral lymphatics for a total of 5040 cGy administered in 28 fractions over 51 elapsed days. Prior to treatment delivery localization was accomplished upon our CT simulator and treatment portals were defined by the use of multiple leaf collimators. She was treated to the right supraclavicular fossa for a total of 4860 cGy in 27 fractions. At the completion of her dose to the entire breast of 5040 cGy she received an additional five treatments or 1000 cGy to the lumpectomy scar site via an energetic electron beam. Again prior to treatment delivery localization was accomplished upon our CT simulator and treatment portals defined by the use of multiple leaf collimators. Status of tumor: There was no evidence of local regional recurrence nor was there clinical evidence of distant metastatic spread during her course of radiotherapy. With the boost portion of her external beam radiotherapy she received an additional 900 cGy in five fractions. The patient was treated with a 3-D conformal radiotherapy technique 100 cm SAD with a combination of a 15 and 6 MV photon beam. The breast was treated with a combination of a 10 MV and 6 MV photon beam. The boost of the additional 900 cGy were administered a 9 MEV electron beam. Status of tumor: There was neither evidence of local regional recurrence nor clinical evidence of distant metastatic spread during her course of radiotherapy. In general treatments were relatively well tolerated, although the patient did experience some which the skin erythema was most prominent in the inframammary fold. It responded to conservative topical treatments. DISPOSITION: Return to clinic in 1 month for post radiotherapy followup visit and skin check and she was advised to return to her referring physicians as per their directions and instructions. Thank you for allowing us the opportunity of participation in the management of this very jere lady. cc: Laura Odell, MD Pamela Bajwa MD Robert Kimball, MD Kara Kort, MD David Rosner, MD MTDD
[2019-01-10] MEDS ORDERED: LETR2.5T2 PO (10:00)
== END 2019-02-03 ==
LOC: M ONCR 09:56
PROVIDERS: ATTEND Radiology Radiation Oncology
DX: C50.111 Malignant neoplasm of central portion of right female breast (principal)

== ENCOUNTER → 2019-02-12 | Outpatient (CLI) | payer OTHER ==
[~2019-02-12] MED LIST changes: +LETR2.5T2 PO
--- NOTE | 2019-02-13 07:57 | RADONC ---
RADIATION ONCOLOGY FOLLOWUP NOTE DATE: 02/12/2019 CHART NUMBER: [id number] DIAGNOSIS: Right breast cancer. STAGE: [id number], ER positive, CT positive, HER2/sherrell equivocal, grade 3, Oncotype score 38. ECOG PERFORMANCE STATUS: 0. FOLLOWUP NOTE: Ms. 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 The patient presents today reporting that she is doing quite well with no complaints at this time related to her radiation therapy disease. She has no chest wall or bone pain. The patient's review of systems is noncontributory. She denies nausea, vomiting, fevers, chills, night sweats, diplopia, headaches, anxiety or depression, anorexia, weight loss, visual disturbances, chest pain, urinary or bowel difficulties, bone pain, or neurological problems. PHYSICAL EXAMINATION: The patient is a well-developed, well-nourished, female in no acute distress. HEENT exam is normocephalic, atraumatic. Extraocular movements are intact. There is no palpable cervical, supraclavicular, infraclavicular, axillary, or inguinal lymphadenopathy present. Lungs are clear to auscultation and percussion. Heart has a regular rate and rhythm. Abdomen is benign with no hepatosplenomegaly, masses, or tenderness. Breast examination reveals the patient's left breast is free of masses or discharge. Her right chest wall has some radiation tanning present but overall the skin is in good condition with no evidence of moist or dry desquamation. There is no evidence of nodularity ulceration or recurrent disease. Extremities reveal no clubbing, cyanosis, or edema. Neurologic exam is grossly intact, as is the remainder of the physical examination. ASSESSMENT: The patient is clinically FERNANDO at this time. She is being followed and managed closely by her other physicians and is therefore being discharged from my followup except on a as needed basis. cc: Laura Odell, GAS PLANT REPAIRER MD Pamela Alarcon MD Robert Kimball, MD Kara Kort, MD David Rosner, MD
== END ==
LOC: M ONCR 10:00
PROVIDERS: ATTEND Radiology Radiation Oncology
DX: Z85.3 Personal history of malignant neoplasm of breast (principal); Z92.3 Personal history of irradiation

== ENCOUNTER → 2019-12-08 | Outpatient (CLI) | payer OTHER ==
[~2019-12-08] MED LIST changes: -ALL10TAB29 PO; +CETI-24 PO; +SIMV40TA20 PO
--- NOTE | 2020-01-21 15:28 | DEXA ---
AP SPINE L1 - L4 0.974 -1.8 -0.8 LT FEMUR TOTAL 0.814 -1.5 -0.8 LT NECK 0.720 -2.3 -1.2 RT FEMUR TOTAL 0.773 -1.9 -1.1 RT NECK 0.701 -2.4 -1.3 TOTAL BODY TOTAL OTHER COMMENTS: There is low bone density of the spine and hips. FOLLOW-UP: Recommendation for the next bone density exam: 2 years. DEBORAH
== END ==
LOC: M WHC 06:19
PROVIDERS: ATTEND Internal Medicine Medical Oncology
DX: Z13.820 Encounter for screening for osteoporosis (principal)

== ENCOUNTER → 2020-04-07 | Outpatient (CLI) | payer OTHER ==
[~2020-04-07] MED LIST changes: +GASTROGRAFIN SOLUTION 30ML (Q9963) As Ordered ONE; +ISOVUE-370 76% 100ML VIAL As Ordered ONE; +MAGN400C2 PO; +METF500T13 PO
--- NOTE | 2020-04-08 05:45 | REP ---
INDICATION: BREAST CA W/ METS COMPARISON: 05/20/2018 TECHNIQUE: Axial contrast enhanced images from the thoracic inlet to the upper abdomen with coronal and sagittal reformations using 100 ml Isovue 370 intravenous contrast material followed by CT of the abdomen and pelvis. This CT examination was performed using the following dose reduction techniques: Automated exposure control, adjustment of mA and/or kv according to the patient's size, and use of iterative reconstruction technique. FINDINGS: Evidence for prior right mastectomy and axillary node dissection. Mild subpleural markings suggesting scarring along the anterior margin of the right upper lobe and right middle lobe are identified. There is a stable 3 mm perifissural nodule along the right major fissure (image 47). No further consolidation, suspicious nodule or mass lesion appreciated. No pleural effusion. No pneumothorax. Tracheobronchial tree is patent. The mediastinum demonstrates new pathological lymph nodes along the superior aspect of the mediastinum above the aortic arch which measure up to 18 mm. There also appears to be new heterogeneous lytic mass involving the manubrium and sternum (images [id number]). Large new pathologic lymph nodes are also identified in the left axilla which measure up to 5.6 cm diameter. IMPRESSION: 1. New metastatic adenopathy involving the superior mediastinum and left axillary nodes along with new metastasis involving the sternum and manubrium. 2. No acute pulmonary parenchymal or pleural process identified. <Electronically signed by Bridger Shaffer > 04/08/20 0541
--- NOTE | 2020-04-08 05:50 | REP ---
INDICATION: BREAST CA W/ METS. COMPARISON: 05/20/2018 TECHNIQUE: Axial contrast-enhanced images from the lung bases to the pubic symphysis using 100 cc Isovue 370 intravenous contrast material. Delayed images of the abdomen as well as coronal and sagittal reformations obtained. This CT examination was performed using the following dose reduction techniques: Automated exposure control, adjustment of mA and/or kv according to the patient's size, and the use of iterative reconstruction technique. FINDINGS: Evidence for prior right mastectomy. Liver demonstrates fatty infiltration without focal hepatic lesion identified. Spleen, pancreas, gallbladder, bilateral adrenal glands and kidneys are normal. Multiple splenules noted in the left upper quadrant. Small hiatal hernia identified at the gastroesophageal junction. The small and large bowel appear normal. No evidence for obstruction or acute inflammatory process. Normal terminal ileum and appendix are identified in the right lower quadrant. Pelvis demonstrates normal bladder and age-appropriate uterus/adnexa. No ascites. No free air. No intraperitoneal or retroperitoneal adenopathy. Abdominal aorta and vasculature appear normal. Musculoskeletal structures are intact and without acute osseous abnormality. IMPRESSION: 1. Hepatosteatosis. 2. Small hiatal hernia. 3. No further acute abdominopelvic pathology appreciated. <Electronically signed by Bridger Shaffer > 04/08/20 0546
== END ==
LOC: M RAD 07:34
PROVIDERS: ATTEND Internal Medicine Medical Oncology
DX: C50.919 Malignant neoplasm of unspecified site of unspecified female breast (principal); C77.3 Secondary and unspecified malignant neoplasm of axilla and upper limb lymph nodes; C77.1 Secondary and unspecified malignant neoplasm of intrathoracic lymph nodes
CPT/HCPCS: 71260; 74177; Q9963; Q9967

== ENCOUNTER → 2020-04-14 | Outpatient (CLI) | payer OTHER ==
[~2020-04-14] MED LIST changes: -GASTROGRAFIN SOLUTION 30ML (Q9963) As Ordered ONE; -ISOVUE-370 76% 100ML VIAL As Ordered ONE; +VERZ150T PO
--- NOTE | 2020-04-14 11:49 | REP ---
INDICATION: BREAST CA W/METS. COMPARISON: Comparison chest CT study is from June 08, 2019. Comparison radionuclide bone scan April 19, 2016.. TECHNIQUE/RADIOTRACER AND DOSE: 22.0 mCi of Technetium-99m MDP was injected and standard whole-body bone scanning is acquired. FINDINGS: There is mild arthritic uptake at the left ankle. Injection site uptake is seen in the left forearm. There is a new lesion in the sternum with vertically oriented photopenic area surrounded by intensely increased uptake along the borders of the sternum and manubrium. This corresponds with the bony destructive lesions seen in the sternum on recent CT study and is compatible with a sternal and manubrial metastasis. There are foci of mildly increased uptake in the anterior aspect of the mandible and in the right side of the maxilla. These findings are actually less pronounced than on the April 2016 bone scan and may be related to periodontal disease. There is uptake in bilateral kidneys and urinary bladder. Minimal degenerative uptake pattern is seen in the lumbar spine. There is no other evidence suspicious for skeletal metastatic sites. There is diffusely increased soft tissue uptake in the left breast corresponding with the dermal thickening and stromal thickening seen diffusely on CT study April 07, 2020. Inflammatory breast carcinoma may have this appearance. IMPRESSION: New large metastatic lesion in the sternum and manubrium. Diffuse soft tissue uptake in the left breast question inflammatory type malignancy of the left breast. No other skeletal metastatic site seen.. <Electronically signed by Aleksandar Thurman > 04/14/20 [id number]
== END ==
LOC: M RAD 08:15
PROVIDERS: ATTEND Internal Medicine Medical Oncology
DX: C50.919 Malignant neoplasm of unspecified site of unspecified female breast (principal)
CPT/HCPCS: 78306; A9503

== ENCOUNTER → 2020-05-21 | Outpatient (CLI) | payer OTHER ==
[~2020-05-21] MED LIST changes: +LIDOCAINE 1% MDV 20ML VIAL As Ordered ONE; +SODIUM BICARBONATE 8.4% INJ 50MEQ 50 ML VIAL As Ordered ONE
[2020-05-21 09:15] VITALS: BP 152/92
--- NOTE | 2020-05-21 17:53 | REP ---
INDICATION: BREAST CANCER. COMPARISON: None. TECHNIQUE: The procedure was performed by ULYSSES Keene, under the direct supervision of Dr. Fonseca. The risks and benefits of the procedure were explained to the patient and an informed consent was obtained both verbally and written. Directly prior to the start of the procedure a formal time-out was completed in the procedure room. FINDINGS: Using ultrasound guidance the sternal lesion was localized. The skin was prepped and draped in a sterile fashion. Six mL of buffered lidocaine was used as a local anesthetic. Using ultrasound guidance a 17/18 gauge coaxial needle biopsy system was inserted and advanced into the sternal mass. Six core biopsy specimens were obtained and sent to pathology for further analysis. The patient tolerated the procedure well and there were no immediate complications. After the appropriate amount of monitored convalescence the patient was discharged from the department. IMPRESSION: 1. Ultrasound-guided sternal mass biopsy. <Electronically signed by Shelbie Stahl > 05/21/20 1022 <Electronically signed by Nemesio Fonseca > 05/21/20 [id number]
== END ==
LOC: M IRPRO 08:22
PROVIDERS: ATTEND Internal Medicine Medical Oncology
DX: C79.51 Secondary malignant neoplasm of bone (principal); C50.919 Malignant neoplasm of unspecified site of unspecified female breast

== ENCOUNTER → 2020-08-10 | Outpatient (CLI) | payer OTHER ==
[~2020-08-10] MED LIST changes: -LIDOCAINE 1% MDV 20ML VIAL As Ordered ONE; -SODIUM BICARBONATE 8.4% INJ 50MEQ 50 ML VIAL As Ordered ONE
--- NOTE | 2020-08-11 09:08 | REP ---
INDICATION: MET BREAST CA COMPARISON: 04/07/2020 TECHNIQUE: Axial noncontrast images from the thoracic inlet to the upper abdomen with coronal and sagittal reformations. This CT examination was performed using the following dose reduction techniques: Automated exposure control, adjustment of mA and/or kv according to the patient's size, and use of iterative reconstruction technique. FINDINGS: Right hemithorax demonstrates subpleural scarring along the anterior right upper lobe and right middle lobe along with small stable perifissural nodule measuring 3 mm. The left hemithorax is well aerated and clear. No effusion. No pneumothorax. No consolidation. Tracheobronchial tree is patent. Superior mediastinal lymph nodes have decreased in size from prior examination. No obvious further mediastinal or hilar adenopathy is identified. Thoracic aorta, pulmonary vasculature, and heart/pericardium are relatively normal. A small hiatal hernia is identified at the gastroesophageal junction. Left axillary adenopathy is again noted but decreased in size from prior examination. Specifically, the largest lymph node previously measuring 5.6 cm maximal diameter currently measures 4.2 cm maximal diameter. There is continued evidence for fatty infiltration and skin thickening involving the left breast. Right mastectomy noted. Metastatic involvement of the sternum/manubrium appears mildly improved. IMPRESSION: 1. Lung zambrano are stable. 2. Left axillary adenopathy appears improved. Superior mediastinal adenopathy on prior examination is nearly resolved. Metastatic involvement of the sternum/manubrium is again noted but appears mildly improved and without enlargement/progression. 3. No new acute process is appreciated. <Electronically signed by Bridger Shaffer > 08/11/20 0904
--- NOTE | 2020-08-11 09:18 | REP ---
INDICATION: MET BREAST CA COMPARISON: 04/07/2020, 05/20/2018 TECHNIQUE: Axial noncontrast images of the abdomen and pelvis with coronal and sagittal reformations. This CT examination was performed using the following dose reduction techniques: Automated exposure control, adjustment of mA and/or kv according to the patient's size, and use of iterative reconstruction technique. FINDINGS: Lung bases demonstrate chronic scarring at the right middle lobe.. Liver, spleen, pancreas, gallbladder, bilateral adrenal glands and kidneys are normal. Incidental 2 mm nonobstructing right renal calculus. Stable rounded lesions in the left upper quadrant consistent with multiple splenules and unchanged through 2019. The enteric system is unremarkable and without obstruction or acute inflammatory process. Normal terminal ileum and appendix identified in the right lower quadrant. Few scattered colonic diverticula noted without acute diverticulitis. Pelvis demonstrates normal bladder and age-appropriate uterus/adnexa. No ascites. No free air. No adenopathy. No focal inflammatory stranding. Abdominal aorta without aneurysm. Musculoskeletal structures demonstrate degenerative changes without evidence for acute osseous abnormality. IMPRESSION: No acute abdominopelvic pathology appreciated. 2 mm nonobstructing right renal calculus. Few scattered diverticula without acute diverticulitis. <Electronically signed by Bridger Shaffer > 08/11/20 0915
== END ==
LOC: M RAD 14:39
PROVIDERS: ATTEND Internal Medicine Medical Oncology
DX: C50.919 Malignant neoplasm of unspecified site of unspecified female breast (principal)

== ENCOUNTER → 2020-11-30 | Outpatient (CLI) | payer OTHER ==
[~2020-11-30] MED LIST changes: +COVI100V IM; +FERR325T3 PO; +POTA8CAP10 PO; +VERZ100T PO
--- NOTE | 2020-11-30 12:27 | REP ---
INDICATION: MET BREAST CA. COMPARISON: 08/10/2020, 04/07/2020 TECHNIQUE: Noncontrast scanning through the chest with coronal and sagittal reconstructions provided. FINDINGS: There is some peripheral and subpleural scarring in the right middle lobe at the anterior lung base unchanged. Some subpleural fibrotic change in the medial basal segment of the right lower lobe also minimal. No pleural effusion, calcified pleural plaque or parenchymal mass identified. There is a 4.7 mm nodule in the lateral aspect superior segment of the right lower lobe unchanged. No other definite parenchymal or perifissural nodules. Some mild cylindrical bronchiectatic change seen. Heart is not enlarged. There is no pericardial thickening or effusion. Calcification at the aortic arch but no aneurysm seen. No pathologic sized mediastinal or hilar adenopathy. None of the mediastinal nodes are a cm in short axis. Calcifications in coronary arteries are noted. Small hiatal hernia evident. Patient has undergone a prior right mastectomy and axillary lymph node dissection. Left axillary adenopathy is again seen with largest again 2.2 cm in short axis, 3.7 cm long, previously 2.2 x 4.3 cm. Other cm and subcentimeter axillary nodes on the left side seen. No definite supraclavicular adenopathy. Extensive the expansile and destructive metastatic lesions of the mid to upper sternum and mint manubrium, unchanged. Associated soft tissue component noted. This is likely palpable. Medial clavicles, visualized ribs, scapulae and humeral heads in their visible portions were unremarkable. Spine shows mild kyphosis with the degenerative changes and spondylosis but no compression fracture or destructive lesion in the lower cervical to upper lumbar areas and their posterior elements. There is stable skin thickening/edema over the anterior left breast that would correlate with her axillary adenopathy. Please see the CT abdomen pelvis report today for findings in that area. IMPRESSION: 1. Status post right mastectomy and axillary lymph node dissection. Skin thickening and edema the left breast and adenopathy including a large bulky node and several other cm size nodes. These are relatively stable. 2. Some chronic fibrotic changes in the apices and elsewhere but the lungs without new or suspicious findings to raise question of interval lung metastatic disease. 3. Small hiatal hernia. Degenerative changes in the spine. Lytic and expansile metastatic lesion involving the mid to upper sternum and the manubrium. This appears unchanged. No other new or interval change. <Electronically signed by Aly Montgomery > 11/30/20 [id number]
--- NOTE | 2020-11-30 12:36 | REP ---
INDICATION: MET BRAIN CA. COMPARISON: 08/10/2020 TECHNIQUE: Noncontrast scanning through the abdomen and pelvis with coronal and sagittal reconstructions. Bone windows are also reviewed. FINDINGS: CT abdomen/pelvis: A small hiatal hernia noted. There is no hepatomegaly, intrahepatic biliary dilatation, mass nor adjacent ascites. Gallbladder shows no calcified stone or mass. There is no splenomegaly or focal splenic lesion. Pancreas is unremarkable. Adrenal glands intact. Kidneys again show a nonobstructing 2 x 3 mm stone upper pole on the right, stable. No hydronephrosis, mass, cyst, hydroureter or ureteral stone. Aorta without aneurysm. There is no periaortic, retroperitoneal or mesenteric pathologic sized lymphadenopathy. Small bowel loops grossly intact. No dilatation or sign of obstruction. Colon with stool and gas scattered. There is some oral contrast from previous scan in the appendix which is normal. There is no sign of perforation or free air in the abdomen or pelvis. No generalized ascites. Some mild degenerative disc changes at lower thoracic levels greater at the L3-4 through L5-S1 levels with vacuum phenomenon and posterior osteophytes. No compression fracture or destructive lesion. Posterior elements without acute finding. Small dextro rotatory curve the thoracolumbar junction. The sacrum, pelvis and hips show minor degenerative changes without destructive lesions. Uterus anteverted not enlarged. No pelvic or adnexal mass or free fluid. Few pelvic phleboliths are noted bladder without stone or mass but not well filled. There is no ventral or inguinal hernia, inguinal or pelvic lymphadenopathy nor other acute finding IMPRESSION: 1. No evidence of abdominal or pelvic metastatic disease or bony metastatic changes. 2. Nonobstructing 2 x 3 mm right upper pole renal calculus. No new or significant interval change, stable exam. <Electronically signed by Aly Montgomery > 11/30/20 [id number]
== END ==
LOC: M RAD 10:27
PROVIDERS: ATTEND Internal Medicine Medical Oncology
DX: C79.31 Secondary malignant neoplasm of brain (principal)

== ENCOUNTER → 2021-01-08 | Outpatient (CLI) | payer OTHER | LOC: M LABSMTC 11:03 | PROVIDERS: ATTEND Surgery | DX: Z01.818 Encounter for other preprocedural examination (principal); Z11.52 Encounter for screening for COVID-19 ==

== ENCOUNTER → 2021-04-05 | Outpatient (CLI) | payer OTHER ==
[~2021-04-05] MED LIST changes: +ATOR40TA75 PO; -FLUC150T PO; +FLUC150T9 PO; +LOSA50TA28 PO; -LOSA50TA88 PO
== END ==
LOC: M RAD 14:50
PROVIDERS: ATTEND Internal Medicine Medical Oncology
DX: C50.919 Malignant neoplasm of unspecified site of unspecified female breast (principal); N20.0 Calculus of kidney

== ENCOUNTER → 2021-08-05 | Outpatient (CLI) | payer OTHER | LOC: M RAD 08:04 | PROVIDERS: ATTEND Internal Medicine Medical Oncology | DX: R59.0 Localized enlarged lymph nodes (principal); C50.911 Malignant neoplasm of unspecified site of right female breast; R91.8 Other nonspecific abnormal finding of lung field ==

== ENCOUNTER → 2021-08-19 | Outpatient (REF) | payer OTHER | LOC: M LAB REF 16:55 | PROVIDERS: ATTEND Internal Medicine Nephrology | DX: C50.919 Malignant neoplasm of unspecified site of unspecified female breast (principal) ==

== ENCOUNTER → 2021-10-21 | Outpatient (CLI) | payer OTHER ==
[~2021-10-21] MED LIST changes: +FENO145T7 PO; +TRIC145T22 PO
== END ==
LOC: M CARPUL 07:13
PROVIDERS: ATTEND Internal Medicine Medical Oncology
DX: C79.81 Secondary malignant neoplasm of breast (principal); I08.2 Rheumatic disorders of both aortic and tricuspid valves; Z51.81 Encounter for therapeutic drug level monitoring

== ENCOUNTER → 2021-11-23 | Outpatient (CLI) | payer OTHER ==
[~2021-11-23] MED LIST changes: +ALOG12.5 PO; +AMOX500T
== END ==
LOC: M ONCR 12:44
PROVIDERS: ATTEND General Practice
DX: C50.911 Malignant neoplasm of unspecified site of right female breast (principal); C77.3 Secondary and unspecified malignant neoplasm of axilla and upper limb lymph nodes; Z79.51 Long term (current) use of inhaled steroids; Z90.11 Acquired absence of right breast and nipple; Z92.3 Personal history of irradiation; Z92.29 Personal history of other drug therapy; Z80.3 Family history of malignant neoplasm of breast; Z80.6 Family history of leukemia; Z88.1 Allergy status to other antibiotic agents; Z79.899 Other long term (current) drug therapy

== ENCOUNTER 2021-12-01 10:36 | Outpatient (RCR) | payer OTHER | END 2021-12-04 | LOC: M ONCR 10:36 | PROVIDERS: ATTEND General Practice | DX: C79.51 Secondary malignant neoplasm of bone (principal); C50.111 Malignant neoplasm of central portion of right female breast ==

== ENCOUNTER → 2021-12-05 | Outpatient (CLI) | payer OTHER | LOC: M RAD 09:47 | PROVIDERS: ATTEND Nurse Practitioner | DX: C50.912 Malignant neoplasm of unspecified site of left female breast (principal) ==

== ENCOUNTER → 2021-12-29 | Outpatient (CLI) | payer OTHER ==
[~2021-12-29] MED LIST changes: +HYDR-3713 PO; +ONDA4TAB6 PO; +OXYC1TAB23 PO
== END ==
LOC: M LABSMTC 10:33
PROVIDERS: ATTEND Surgery
DX: Z11.52 Encounter for screening for COVID-19 (principal)

== ENCOUNTER → 2022-01-04 | Outpatient (RCR) | payer OTHER | LOC: M ONCR 12-05 11:05 | PROVIDERS: ATTEND General Practice | DX: C79.51 Secondary malignant neoplasm of bone (principal); C50.111 Malignant neoplasm of central portion of right female breast ==

== ENCOUNTER 2022-01-10 11:45 | Outpatient (RCR) | payer OTHER ==
[2022-01-17] MEDS ORDERED: ONDA-84 PO (13:27)
[2022-01-17] MEDS ORDERED: PROC10TA5 PO (13:28)
[2022-01-17] MEDS ORDERED: LIDO1CRE42 TOP (13:35)
[2022-01-18] MEDS ORDERED: POTA-151 PO (16:19)
== END 2022-02-03 ==
LOC: M ONCR 11:45
PROVIDERS: ATTEND General Practice
DX: C79.51 Secondary malignant neoplasm of bone (principal); C50.111 Malignant neoplasm of central portion of right female breast